=== PATIENT | female | born 1995 | race Caucasian/White ===

== ENCOUNTER 2016-12-10 04:49 | Emergency (ER) | payer SELFPAY ==
[~2016-12-10] VITALS: Ht 165.1 cm; Wt 108.9 kg
[2016-12-10 05:07] VITALS: BP 113/76
--- NOTE | 2016-12-10 05:14 | NUR ---
AMBULATORY TO ER BED 5
--- NOTE | 2016-12-10 05:17 | NUR ---
Patient being evaluated by physician at bedside.
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
[2016-12-10] MEDS ORDERED: KETOROLAC 30 MG/ML VIAL IM ONE (05:25)
[2016-12-10] MEDS ORDERED: DIAZEPAM 5 MG TAB PO ONE (05:25)
--- NOTE | 2016-12-10 06:11 | NUR ---
Patient discharged with v/s stable. Written and verbal after care instructions given and explained. Patient alert, oriented and verbalized understanding of instructions. Ambulatory with steady gait. All questions addressed prior to discharge. ID band removed. Patient advised to follow up with PMD. Rx of VALIUM 5 MG, NAPROSYN 500MG given. Patient educated on indication of medication including possible reaction and side effects. Opportunity to ask questions provided and answered. Addendum: 12/10/16 at 0614 by ELIZABETH ACETAMINOPHEN 500 MG ALSO PRESCRIBED BY .
[2016-12-10 06:13] VITALS: BP 113/76
== END 2016-12-10 06:13 | disposition home or self-care (01) ==
LOC: MED 04:49
DX: R07.89 Other chest pain (principal); V89.2XXA Person injured in unspecified motor-vehicle accident, traffic, initial encounter; Y93.89 Activity, other specified; Y92.411 Interstate highway as the place of occurrence of the external cause; Y99.8 Other external cause status
CPT/HCPCS: 71010; 81025; 96372; 99283; J1885; Q0092